=== PATIENT | female | born 2000 | race Caucasian/White ===

== ENCOUNTER 2022-05-01 22:29 | Emergency (ER) | payer OTHER, MEDICAID ==
[~2022-05-01 22:29] MED LIST: ROBAXIN 750 MG750 MG PO; TORADOL 10 MG T10 MG PO
== END 2022-05-02 03:30 | disposition home or self-care (01) ==
LOC: ER1 22:29
DX: S39.012A Strain of muscle, fascia and tendon of lower back, initial encounter (principal); S16.1XXA Strain of muscle, fascia and tendon at neck level, initial encounter; S00.11XA Contusion of right eyelid and periocular area, initial encounter; S80.211A Abrasion, right knee, initial encounter; F17.290 Nicotine dependence, other tobacco product, uncomplicated; Z88.8 Allergy status to other drugs, medicaments and biological substances; R51.9 Headache, unspecified; V49.40XA Driver injured in collision with unspecified motor vehicles in traffic accident, initial encounter; Y92.410 Unspecified street and highway as the place of occurrence of the external cause
CPT/HCPCS: 70450; 72125; 72131; 73564; 99284